=== PATIENT | female | born 1930 | race Caucasian/White ===

== ENCOUNTER 2018-04-01 17:05 | Inpatient (IN) | payer OTHER, MEDICAID ==
[~2018-04-01] VITALS: Ht 160 cm; Wt 64.1 kg
[~2018-04-01 17:05] MED LIST: AMLO5TAB4 PO; CLOP75TA2 PO; DOCU-144 PO; ESCI10TA PO; MEMA10TA PO; RISP0.5T5 PO; TRAM1TAB33 PO; VALS160T2 PO
--- NOTE | 2018-04-01 19:20 | NUR ---
ADMIT / OPENING NOTE Received patient direct admit from [facility] via ambulance. Admit to Dr. Toña Short. VSS, temp 97.8, nonlabored breathing, 92% oxygen on room air. Patient is AOx1, confused and does not speak luxembourgish. Bed locked to lowest position, bed alarm on and call light near.
--- NOTE | 2018-04-01 19:50 | NUR ---
SON AT BEDSIDE Son, Adolfo Shahid is visiting at bedside and answering questions regarding the patient's condition. Patient is confused and is very restless. Son is asking if she has medication to calm her. Will page Dr. Short to notify and request medication orders. Will follow up
--- NOTE | 2018-04-01 20:45 | NUR ---
S/W Dr. Short Spoke to Dr. Short and obtained admitting orders. He did order for a sitter, but did not order medication to calm the patient. He said he will reconcile the medications.
[2018-04-01] MEDS ORDERED: DONE10TA44 PO (20:56)
[2018-04-01] MEDS ORDERED: SERT50TA12 PO (20:56)
[2018-04-01] MEDS ORDERED: ANT30 PO (20:56)
[2018-04-01] MEDS ORDERED: CARB1TAB21 PO (20:56)
[2018-04-01] MEDS ORDERED: ZOLP5TAB2 PO (20:56)
[2018-04-01] MEDS ORDERED: IPRA3AMP9 INH (20:56)
[2018-04-01] MEDS ORDERED: MOM PO (20:56)
[2018-04-01] MEDS ORDERED: ACET325T53 PO (20:56)
[2018-04-01] MEDS ORDERED: ACET-2165 PO (20:56)
[2018-04-01] MEDS ORDERED: TRAM50TA2 PO (20:56)
[2018-04-01] MEDS ORDERED: CEFEPIME 1 GM/VIAL (MAXIPIME) ONE (21:50)
[2018-04-01 22:06] LABS: BASOPHILS # (AUTO) 0.1 K/uL (0.0-0.2); BASOPHILS % (AUTO) 0.8 % (0.0-2.0); EOSINOPHILS # (AUTO) 0.2 K/uL (0.0-0.4); HEMATOCRIT 41.4 % (36-48); HEMOGLOBIN 13.3 g/dL (12.0-16.0); LYMPHOCYTES # (AUTO) 2.8 K/uL (1.0-5.5); LYMPHOCYTES % (AUTO) 31.8 % (20.5-51.5); MEAN CORPUSCULAR HEMOGLOBIN 30 pg (27-31); MEAN CORPUSCULAR HGB CONC 32 % (32-36); MEAN CORPUSCULAR VOLUME 94 fL (79.0-98.0); MONOCYTES # (AUTO) 0.8 K/uL (0.0-1.0); MONOCYTES % (AUTO) 8.7 % (1.7-9.3); NEUTROPHILS % (AUTO) 56.7 % (40.0-70.0); PLATELET COUNT (AUTO) 286 K/uL (130-430); RED BLOOD CELL COUNT(AUTO) 4.41 MIL/uL (4.2-6.2); RED CELL DISTRIBUTION WIDTH 13.1 % (9.0-15.0); WHITE BLOOD COUNT (AUTO) 8.9 K/uL (4.8-10.8)
--- NOTE | 2018-04-01 22:13 | NUR ---
Paged Dr. Short on his pager.
--- NOTE | 2018-04-01 22:20 | NUR ---
s/w Dr. Short Spoke w/ Dr. Short and notified that patient continues to exhibit combative behavior and that it took four nurses to start an IV. He ordered Haldol IM 3mg once.
[2018-04-01 22:33] LABS: ALBUMIN 3.7 g/dL (3.4-4.8); ANION GAP 12 (5-15); ASPARTATE AMINOTRANSFERASE 18 U/L (10-37); CALCIUM 9.6 mg/dL (8.4-11.0); CHLORIDE 102 mmol/L (98-107); CREATININE 1.43 mg/dL (0.55-1.30); GLUCOSE 94 mg/dL (70-99); POTASSIUM 4.4 mmol/L (3.5-5.1); SODIUM SERUM 138 mmol/L (136-145); TOTAL BILIRUBIN 0.5 mg/dL (0.0-1.0); UREA NITROGEN, BLOOD 21 mg/dL (8-21)
[2018-04-01 22:55] LABS: ALANINE AMINOTRANSFERASE 14 U/L (12-78)
[2018-04-01] MEDS ORDERED: HALOPERIDOL LACTATE 5 MG/ML VIAL IM ONE (23:00)
[2018-04-01] MEDS: KCL 20 mEq in D5/0.45NS 1000mL 1,000 ML IV SCH (23:41)
[2018-04-01] MEDS: CEFEPIME 1 GM in D5W 50 ML IV SCH (23:42)
[2018-04-02] VITALS (7 sets, daily range): BP systolic 122–155
[2018-04-02] MEDS ORDERED: MAG-AL HYDROX/SIMETH 30 ML UDC PO PRN (00:15)
[2018-04-02] MEDS ORDERED: traMADol HCL HCL 50 MG TABLET (ULTRAM) PO PRN (00:15)
[2018-04-02] MEDS ORDERED: IPRATROPIUM/ALBUTEROL SULFATE 3 ML AMPUL.NEB (DUONEB) INH PRN (00:15)
[2018-04-02] MEDS ORDERED: MILK OF MAGNESIA 30 ML UDC PO PRN (00:15)
[2018-04-02] MEDS ORDERED: ACETAMINOPHEN 325 MG TABLET PO PRN ×2 (00:15)
[2018-04-02] MEDS ORDERED: SERTRALINE HCL 50 MG TABLET PO PRN (00:15)
--- NOTE | 2018-04-02 00:20 | NUR ---
Spoke to Dr. Short at the bedside. Informed him of patient's current behavior. Asked Dr. Short about possible restraints, he refused to order restraints; only sitter was to be ordered. Informed him that patient pulled out her IV. Orders received. Haldol 3mg IM one time dose after 0100 IV can be started on the leg, per Dr. Short. He stated "Leg IV is okay, patient will keep pulling out the IV if in her arm." Orders have been input. Spoke to bench molder apprentice, Jisha and ASAF Briggs about new orders from Dr. Short
[2018-04-02] MEDS ORDERED: HALOPERIDOL LACTATE 5 MG/ML VIAL IM ONE (00:30)
--- NOTE | 2018-04-02 01:30 | NUR ---
ROUNDS Patient remains very agitated and combative. Administered Haldol 3mg IM as ordered. Sitter is at bedside and safety/fall precautions in place. Will monitor.
--- NOTE | 2018-04-02 04:30 | NUR ---
ROUNDS Patient is awake and remains restless and agitated. Sitter at bedside reports, patient has not slept. Administered zoloft as ordered, it was given PO crushed-mixed w/ applesauce. Patient swallowed medication. Will monitor. Sitter remains at bedside.
--- NOTE | 2018-04-02 06:45 | NUR ---
CLOSING NOTE Patient presently calm, resting in bed w/eyes closed and doll by her side. IV to right ankle remains patent and IVF infusing as ordered. Safety and fall precautions in place. Sitter at bedside. Will endorse care to oncoming morning nurse.
--- NOTE | 2018-04-02 07:40 | NUR ---
AM NOTES Patient awake in bed, confused and agitated, VSS, incontinent of urine, changed and repositioned, IV on right ankle infusing fluids, bruises on both upper extremities, no open wounds, unable to get pulse ox due to agitation with touch, pt now resting comfortably in bed. safety precautions observed, bed in lowest position, call light within reach, sitter remains at bedside. pt refuses to eat at this time, will try again in a little while. will continue to monitor.
[2018-04-02 08:04] LABS: BILIRUBIN,URINE NEGATIVE (NEGATIVE); BLOOD, URINE NEGATIVE (NEGATIVE); CLARITY/URINE HAZY (CLEAR); COLOR,URINE YELLOW (YELLOW); GLUCOSE,URINE NEGATIVE (NEGATIVE); KETONES,URINE NEGATIVE (NEGATIVE); LEUKOCYTE ESTERASE ,URINE TRACE (NEGATIVE); NITRITE, URINE NEGATIVE (NEGATIVE); PROTEIN URINE 2+ (NEGATIVE); UROBILINOGEN,URINE 0.2 (0.2-1.0)
[2018-04-02 08:23] LABS: BACTERIA,URINE MANY /HPF (None Seen); RBC,URINE 0-3 /HPF (0-3)
[2018-04-02 08:24] LABS: MUCUS,URINE None Seen /LPF (None Seen)
[2018-04-02] MEDS: MEMANTINE HCL 5 MG TABLET PO SCH ×2 (09:13→20:39)
[2018-04-02] MEDS: CLOPIDOGREL BISULFATE 75 MG TABLET PO SCH (09:13)
[2018-04-02] MEDS: VALSARTAN 160 MG TABLET (DIOVAN) PO SCH (09:14)
[2018-04-02] MEDS: amLODIPine BESYLATE 5 MG TABLET PO SCH (09:15)
[2018-04-02] MEDS: DOCUSATE SODIUM 100 MG CAPSULE PO SCH ×2 (09:16→20:40)
--- NOTE | 2018-04-02 09:27 | NUR ---
NOTES morning meds given with applesauce and carpenter wooden tank erecting used, RN spoke lithuanian to communicate with patient. Pt refused breakfast, only drank the milk. Pt resting comfortably in bed, no apparent distress noted, safety precautions observed, bed in lowest position, side rails up, call light within reach. will continue to monitor.
--- NOTE | 2018-04-02 10:21 | NUR ---
Nutrition Update Toni Scale 13 noted. Pt admitted for UTI. Diet: regular, mechanical soft BMI: 25 kg/m2 RD to follow per nutrition care standards.
--- NOTE | 2018-04-02 12:30 | NUR ---
Notes/lunch In bed, resting. no signs of distress noted. Turned and repositioned. Tried to feed patient, but pt refuses to eat lunch.
[2018-04-02] MEDS: KCL 20 mEq in D5/0.45NS 1000mL 1,000 ML IV SCH (13:34)
--- NOTE | 2018-04-02 14:18 | NUR ---
NOTES Complete linen and gown change. Patient repositioned for comfort. Pt cooperative and is now comfortably resting with no signs of distress noted. will continue to monitor.
--- NOTE | 2018-04-02 18:22 | NUR ---
CLOSING NOTES FED PT DINNER AND SHE ATE 50%. PT AWAKE AND STILL CONFUSED. NO ACUTE DISTRESS NOTED. IVF INFUSING WELL ON THE RIGHT FOOT. NO SWELLING OR REDNESS NOTED ON THE IV SITE. PT WAS CALM THE WHOLE DAY AND SLEPT MOST OF THE TIME. NO CHANGE IN ASSESSMENT, NEEDS ATTENDED TO, WILL ENDORSE CARE TO ONCOMING RN.
--- NOTE | 2018-04-02 19:10 | NUR ---
DR. SUAZO AT BEDSIDE
--- NOTE | 2018-04-02 19:15 | NUR ---
OPENING NOTE RECEIVED ENDORSEMENT REPORT FROM DAY SHIFT NURSE AT BEDSIDE. PT IS AOX1, MALTESE SPEAKING. PT RESTING COMFORTABLY IN BED WITH EYES OPEN AND ROCKING HER BABY DOLL. CHEST RISE EVEN AND UNLABORED. NO SOB NOTED. NO DISTRESS NOTED. NO S/S OF PAIN NOTED. PT'S VITAL SIGNS WNL. IV ON RIGHT FOOT 22G , IV CLEAN, DRY AND INTACT. IVF INFUSING WELL, AT ORDERED RATE. PT HAS SKIN DISCOLORATION ON BILATERAL WRISTS. ORIENTED PT TO HOSPITAL ROOM, BED, CALL LIGHT AND ROOM PHONE. PT UNABLE TO VERBALIZE UNDERSTANDING. INSTRUCTED PT HOW TO USE CALL LIGHT AND ROOM PHONE. PT UNABLE TO VERBALIZE UNDERSTANDING. EDUCATED PT ON SAFETY, PT UNABLE TO VERBALIZE UNDERSTANDING. SAFETY MEASURES IN PLACE. CALL LIGHT/ ROOM PHONE WITHIN REACH, BED IN LOWEST POSITION, BED WHEELS LOCKED, BED ALARM ON, SIDE RAILS UP X3, BEDSIDE TABLE WITHIN REACH. NO OTHER NEEDS AT THIS TIME. INSTRUCTED PT TO USE CALL LIGHT FOR ASSISTANCE. WILL CONTINUE TO MONITOR PT AT BEDSIDE AND CONTINUE POC.
[2018-04-02] MEDS: DONEPEZIL HCL 5 MG TABLET (ARICEPT) PO SCH (20:39)
[2018-04-02] MEDS: ZOLPIDEM TARTRATE 5 MG TABLET PO SCH (20:39)
--- NOTE | 2018-04-02 20:40 | NUR ---
RN ROUNDS PT RESTING IN BED WITH EYES OPEN. CHEST RISE EVEN AND UNLABORED. NO SOB NOTED. NO DISTRESS NOTED. PT DENIES PAIN AT THIS TIME. PT'S VITAL SIGNS WNL. IVF INFUSING WELL, AT ORDERED RATE. SCHEDULED MEDICATIONS ADMINISTERED ORDERED, PT TOLERATED WELL. NO OTHER NEEDS AT THIS TIME. SAFETY MEASURES IN PLACE. CALL LIGHT/ ROOM PHONE WITHIN REACH, BED IN LOWEST POSITION, BED WHEELS LOCKED, BED ALARM ON, SIDE RAILS UP X3, BEDSIDE TABLE WITHIN REACH. INSTRUCTED PT TO USE CALL LIGHT FOR ASSISTANCE. WILL CONTINUE TO MONITOR PT AT BEDSIDE AND CONTINUE POC.
[2018-04-02] MEDS: ENOXAPARIN SODIUM 30 MG/0.3 ML SYRINGE SUBCUT SCH (20:42)
[2018-04-02] MEDS: CEFEPIME 1 GM in D5W 50 ML IV SCH (23:29)
--- NOTE | 2018-04-02 23:29 | NUR ---
RN ROUNDS PT RESTING IN BED WITH EYES CLOSED. CHEST RISE EVEN AND UNLABORED. NO SOB NOTED. NO DISTRESS NOTED. NO S/S OF PAIN NOTED. PT EASILY AWAKEN. SCHEDULED ANTIBIOTIC ADMINISTERED, PT TOLERATED WELL. IVF INFUSING WELL, AT ORDERED RATE. NO OTHER NEEDS AT THIS TIME. SAFETY MEASURES IN PLACE. WILL CONTINUE TO MONITOR PT AT BEDSIDE AND CONTINUE POC.
--- NOTE | 2018-04-03 02:40 | NUR ---
RN ROUNDS PT RESTING IN BED WITH EYES CLOSED. CHEST RISE EVEN AND UNLABORED. NO SOB NOTED. NO DISTRESS NOTED. NO S/S OF PAIN NOTED. IVF INFUSING WELL, AT ORDERED RATE. NO OTHER NEEDS AT THIS TIME. SAFETY MEASURES IN PLACE. WILL CONTINUE TO MONITOR PT AT BEDSIDE AND CONTINUE POC.
[2018-04-03] MEDS: KCL 20 mEq in D5/0.45NS 1000mL 1,000 ML IV SCH ×2 (03:10→17:37)
[2018-04-03 03:52] VITALS: BP_SYST 140
--- NOTE | 2018-04-03 07:19 | NUR ---
CLOSING NOTE ENDORSED PT CARE TO DAY SHIFT NURSE AT BEDSIDE. PT IS AOX1, RESTING IN BED WITH EYES CLOSED. CHEST RISE EVEN AND UNLABORED. NO SOB NOTED. NO DISTRESS NOTED. NO S/S OF PAIN NOTED AT THIS TIME. PT'S VITAL SIGNS WERE STABLE THROUGHOUT THE NIGHT. ALL SCHEDULED MEDICATIONS ADMINISTERED ORDERED. PT TOLERATED WELL. ALL NEEDS MET THROUGHOUT SHIFT. SAFETY MEASURES IN PLACE. CALL LIGHT/ ROOM PHONE WITHIN REACH, BED IN LOWEST POSITION, BED WHEELS LOCKED, BED ALARM ON, SIDE RAILS UP X3, BEDSIDE TABLE WITHIN REACH. NO OTHER NEEDS AT THIS TIME. INSTRUCTED PT TO USE CALL LIGHT FOR ASSISTANCE. PT CARE MED THROUGHOUT SHIFT, POC ENDORSED TO DAY SHIFT.
--- NOTE | 2018-04-03 07:58 | NUR ---
AM NOTES RECEIVED CARE OF PT. PT RESTING IN BED, IS INCONTINENT OF URINE. CLEANED AND CHANGED LINEN. REPOSITIONED FOR COMFORT. PT ON ROOM AIR BREATHING EVEN AND EFFORTLESSLY. IVF INFUSING IN RIGHT FOOT, NO SIGNS OF REDNESS OR SWELLING AT IV SITE. PT COOPERATIVE AT THIS TIME. SAFETY PRECAUTIONS OBSERVED, BED IN LOWEST POSITION, CALL LIGHT IN REACH, SIDE RAILS UP, SITTER AT BEDSIDE. WILL CONTINUE TO MONITOR.
[2018-04-03 08:00] VITALS: BP_SYST 130
[2018-04-03] MEDS: MEMANTINE HCL 5 MG TABLET PO SCH ×2 (08:41→21:53)
[2018-04-03] MEDS: VALSARTAN 160 MG TABLET (DIOVAN) PO SCH (08:42)
[2018-04-03] MEDS: amLODIPine BESYLATE 5 MG TABLET PO SCH (08:42)
[2018-04-03] MEDS: DOCUSATE SODIUM 100 MG CAPSULE PO SCH ×2 (08:43→21:53)
[2018-04-03] MEDS: CLOPIDOGREL BISULFATE 75 MG TABLET PO SCH (08:43)
--- NOTE | 2018-04-03 09:19 | NUR ---
CONSULTS SEEN BY DR. ARMSTRONG AND EXAMINED PATIENT. PT IS AWAKE NOW AND EATING BREAKFAST (CLEAR LIQUID DIET). DENIES ANY PAIN OR DISCOMFORT. Addendum: 04/03/18 at 0922 by Angely Raza RN ERROR... WRONG ENTRY... INTENDED TO ANOTHER PATIENT.
--- NOTE | 2018-04-03 09:30 | NUR ---
notes pt refused to eat her breakfast.
--- NOTE | 2018-04-03 12:00 | NUR ---
Notes Pt resting in bed, no acute distress noted.
[2018-04-03 12:02] VITALS: BP_SYST 135
--- NOTE | 2018-04-03 14:08 | NUR ---
ATTENDING MD FINANCIAL COACH DR MACKAY WAS PAGED, RE: PT IS POSITIVE MRSA NARES. SPOKE TO JUVENAL
--- NOTE | 2018-04-03 14:34 | NUR ---
Notes Resting in bed, no signs and symptoms of distress noted. turned and repositioned.
[2018-04-03 16:00] VITALS: BP_SYST 143
--- NOTE | 2018-04-03 16:40 | NUR ---
NOTES/IV REWRAPPED IV ON RIGHT FOOT FOR COMFORT. IVF INFUSING, NO SIGNS OF EDEMA, REDNESS OR WARMTH. PT RESTING IN BED, BREATHING EVEN AND EFFORTLESSLY TO ROOM AIR. WILL CONTINUE TO MONITOR.
--- NOTE | 2018-04-03 18:08 | NUR ---
NOTES PT HAS FAMILY AT BEDSIDE, FAMILY FEEDING PT HER DINNER. PT COOPERATIVE AND SHOWS NO SIGNS OF DISTRESS. WILL CONTINUE TO MONITOR.
--- NOTE | 2018-04-03 18:15 | NUR ---
NOTES/TRANSFER PT MOVED TO ROOM 104 WITH ALL BELONGINGS DUE TO ISOLATION PRECAUTIONS FOR MRSA IN NARES.
--- NOTE | 2018-04-03 18:43 | NUR ---
CLOSING NOTES PT RESTING IN BED WITH NO ACUTE DISTRESS NOTED. PT BREATHING EVEN AND UNLABORED TO ROOM AIR. IVF INFUSING WELL ON THE RIGHT FOOT. NO SWELLING OR REDNESS NOTED ON THE IV SITE. PT WAS CALM THE WHOLE DAY AND SLEPT MOST OF THE TIME. NO CHANGE IN ASSESSMENT, NEEDS HAVE BEEN ATTENDED TO. SAFETY PRECAUTIONS OBSERVED, BED IN LOWEST POSITION, CALL LIGHT WITHIN REACH, SIDE RAILS UP, AND SITTER AT BEDSIDE. WILL ENDORSE CARE TO ONCOMING RN.
--- NOTE | 2018-04-03 19:05 | NUR ---
OPENING NOTES: Pt and endorsement received from day shift nurse. Pt is resting in bed with both eyes closed and visible chest rise and fall noted. Sitter at bedside. No signs of acute distress or SOB noted. Pt on IVF of D5 0.45NS with 20 mEq of Kcl infusing well on right foor. Call light with pt, bed alarm on and at its lowest level. Will continue to monitor.
--- NOTE | 2018-04-03 21:22 | NUR ---
PATIENT IS AWAKE AT THIS TIME SHE IS CALM NO AGITATION SHE JUST MOVED HER HANDS AND LOOKED AROUND
[2018-04-03 21:48] VITALS: BP_SYST 153
[2018-04-03] MEDS: DONEPEZIL HCL 5 MG TABLET (ARICEPT) PO SCH (21:53)
[2018-04-03] MEDS: ZOLPIDEM TARTRATE 5 MG TABLET PO SCH (21:59)
[2018-04-03] MEDS: ENOXAPARIN SODIUM 30 MG/0.3 ML SYRINGE SUBCUT SCH (22:00)
--- NOTE | 2018-04-03 22:00 | NUR ---
MED PASS Pt was able to tolerate all oral medications. Crushed oral meds and given with apple sauce to the pt. Aspiration precaution maintained throughout, head elevated at 90 degrees and waited pt to swallow all her meds. Will continue to monitor.
[2018-04-03] MEDS: CEFEPIME 1 GM in D5W 50 ML IV SCH (22:25)
[2018-04-03] MEDS: MUPIROCIN 2% TOPICAL OINTMENT 22 GM NS SCH (22:26)
[2018-04-04 00:27] VITALS: BP_SYST 141
--- NOTE | 2018-04-04 02:50 | NUR ---
RESTING Pt is resting in bed with both eyes closed. With visible chest rise and fall noted. No signs of acute distress or SOB noted. Safety precautions in place, 3 side rails up, bed alarm on and at its lowest level, call light with pt. Will continue to monitor.
[2018-04-04] MEDS: KCL 20 mEq in D5/0.45NS 1000mL 1,000 ML IV SCH ×3 (04:20→21:32)
--- NOTE | 2018-04-04 06:20 | NUR ---
BLOOD DRAW NOT TAKEN Blood draw not taken by Julianna Amezquita. She tried twice and wasn't successful, pt's vein got infiltrated and pt is constantly moving.
--- NOTE | 2018-04-04 06:52 | NUR ---
CLOSING Pt is resting in bed with both eyes closed. With visible chest rise and fall with non-labored breathing noted. No signs of acute distress noted. All needs attended throughout the shift. Safety precautions in place, bed alarm on and at its lowest level, 3 side rails up and call light with pt. Will endorse to days shift nurse.
[2018-04-04 08:00] VITALS: BP_SYST 126
--- NOTE | 2018-04-04 08:00 | NUR ---
RN OPENING NOTE PATIENT RESTING ON BED, OPEN EYES, ALERT ORIENTED X1, FLACC SCALE SHOWS THE PATIENT IN NO PAIN, VITAL SIGNS WERE STABLE. AND PATIENT WAS ASSESSED, BED AT LOW POSITION AND CALL LIGHT WITHIN REACH , WILL CONTINUE TO MONITOR AND WILL GIVE THE MEDICATION AT 0900.
[2018-04-04 08:55] LABS: ANION GAP 8 (5-15); CALCIUM 9.2 mg/dL (8.4-11.0); CHLORIDE 104 mmol/L (98-107); CREATININE 1.32 mg/dL (0.55-1.30); GLUCOSE 104 mg/dL (70-99); POTASSIUM 4.4 mmol/L (3.5-5.1); SODIUM SERUM 137 mmol/L (136-145); UREA NITROGEN, BLOOD 13 mg/dL (8-21)
[2018-04-04 09:00] LABS: BASOPHILS # (AUTO) 0.1 K/uL (0.0-0.2); BASOPHILS % (AUTO) 0.7 % (0.0-2.0); EOSINOPHILS # (AUTO) 0.3 K/uL (0.0-0.4); EOSINOPHILS % (AUTO) 4.7 % (0.0-4.0); HEMATOCRIT 36.9 % (36-48); HEMOGLOBIN 12.4 g/dL (12.0-16.0); LYMPHOCYTES # (AUTO) 1.6 K/uL (1.0-5.5); LYMPHOCYTES % (AUTO) 21.5 % (20.5-51.5); MEAN CORPUSCULAR HEMOGLOBIN 30 pg (27-31); MEAN CORPUSCULAR HGB CONC 34 % (32-36); MEAN CORPUSCULAR VOLUME 90 fL (79.0-98.0); MONOCYTES # (AUTO) 0.7 K/uL (0.0-1.0); MONOCYTES % (AUTO) 9.7 % (1.7-9.3); NEUTROPHILS # (AUTO) 4.7 K/uL (1.8-7.7); NEUTROPHILS % (AUTO) 63.4 % (40.0-70.0); PLATELET COUNT (AUTO) 250 K/uL (130-430); RED BLOOD CELL COUNT(AUTO) 4.09 MIL/uL (4.2-6.2); RED CELL DISTRIBUTION WIDTH 13.4 % (9.0-15.0); WHITE BLOOD COUNT (AUTO) 7.4 K/uL (4.8-10.8)
[2018-04-04] MEDS: amLODIPine BESYLATE 5 MG TABLET PO SCH (09:00)
[2018-04-04] MEDS: VALSARTAN 160 MG TABLET (DIOVAN) PO SCH (09:42)
[2018-04-04] MEDS: MUPIROCIN 2% TOPICAL OINTMENT 22 GM NS SCH ×2 (09:42→21:33)
[2018-04-04] MEDS: DOCUSATE SODIUM 100 MG CAPSULE PO SCH ×2 (09:42→21:33)
[2018-04-04] MEDS: CLOPIDOGREL BISULFATE 75 MG TABLET PO SCH (09:43)
[2018-04-04] MEDS: MEMANTINE HCL 5 MG TABLET PO SCH ×2 (09:43→21:33)
--- NOTE | 2018-04-04 10:00 | NUR ---
RN NOTE PATIENT WAS REPOSITIONED, ATE A LITTLE BIT OF HER BREAKFAST. PATIENT WAS GIVEN HER MEDICATION CRUSHED WITH APPLE SAUCE. PATIENT WAS EDUCATED ABOUT ONE OF HER MEDICATION, PLEASE REFERE TO THE EDUCATION CHARTING, BED AT LOW POSITION AND CALL LIGHT WITHIN REACH, WILL CONTINUE TO MONITOR.
--- NOTE | 2018-04-04 12:00 | NUR ---
RN NOTE PATIENT RESTING ON BED, OPEN EYES BUT NON VERBAL. PATIENT WAS SERVED HER LUNCH, SON BY THE BED SIDE, FEEDING HIS MOTHER, WILL CONTINUE TO MONITOR.
[2018-04-04 12:18] VITALS: BP_SYST 131
--- NOTE | 2018-04-04 14:00 | NUR ---
RN NOTE PATIENT WAS REPOSITIONED. APPEARED NOT TO BE IN PAIN BY FLACC SCALE. PATIENT WAS EDUCATED ABOUT FALL PREVENTION. A FOLLOW UP IS NEEDED SINCE PATIENT IS INCOHERENT. AND DEMENTED.
--- NOTE | 2018-04-04 16:00 | NUR ---
RN NOTE PATIENT RESTING ON BED, SON ABOUT TO LEAVE BUT WANTED NURSES TO CALL HIM REGARDING WHERE HIS MOTHER WILL BE PLACED, HIS BUSSINESS CARD WAS PLACED ON HIS SBAR AND WILL ENDORSE TO NEXT SHIFT.
[2018-04-04 16:02] VITALS: BP_SYST 134
--- NOTE | 2018-04-04 18:00 | NUR ---
RN NOTE PATIENT RESTING ON BED, PATIENT LINEN WERE CHANGED AFTER THE PATIENT VOIDED. NEW DARON WERE DONNED. PATIENT WAS SERVED HER DINNER, AND THE COUNTRY PRINTER WAS FEEDING THE PATIENT. PATIENT APPEAR IN NO PAIN OR DISCOMFORT. WILL ENDORSE TO NEXT SHIFT.
--- NOTE | 2018-04-04 19:32 | NUR ---
OPENING NOTES Pt and endorsement received from day shift nurse. Pt is awake, lying in bed while eating and being fed by JAJA Larose. Pt is cooperative and no signs of agitation. No signs of acute distress noted. Pt on IVF D51/2NS with 20mEq KCL at 75ml/hr infusing well on right foot. Call light with pt, bed alarm on and at its lowest level. Will continue to monitor.
[2018-04-04] MEDS: DONEPEZIL HCL 5 MG TABLET (ARICEPT) PO SCH (21:32)
[2018-04-04] MEDS: CEFEPIME 1 GM in D5W 50 ML IV SCH (21:32)
[2018-04-04 21:33] VITALS: BP_SYST 147
[2018-04-04] MEDS: ZOLPIDEM TARTRATE 5 MG TABLET PO SCH (21:38)
[2018-04-04] MEDS: ENOXAPARIN SODIUM 30 MG/0.3 ML SYRINGE SUBCUT SCH (21:41)
--- NOTE | 2018-04-04 23:00 | NUR ---
ROUNDS Pt is awake, lying in bed while rocking her doll. Pt appears stable and no signs of acute distress at this time. No signs of agitation noted. Safety precautions in place and call light with pt. Will continue to monitor.
[2018-04-05] VITALS (10 sets, daily range): BP systolic 121–181
--- NOTE | 2018-04-05 01:30 | NUR ---
HIGH BP Pt's BP was high and was rechecked multiple times, latest is 181/98. Informed charge nurse Barbara Ovalle.
--- NOTE | 2018-04-05 01:35 | NUR ---
PAGEPippa DIAZ Pagepippa Hutchison, who is covering for Dr. Short. [phone] cara Beltrán
--- NOTE | 2018-04-05 01:52 | NUR ---
second page for Dr. Vasquez Beltrán [phone]
--- NOTE | 2018-04-05 02:08 | NUR ---
third page for Dr. Ovalle Page for Dr. Vasquez Beltrán [phone]
--- NOTE | 2018-04-05 02:27 | NUR ---
BP RECHECK Rechecked pt's BP and is 178/91. Pt is awake and arousable by name. Pt appears not to be in pain by FLACC scale. No other signs of acute distress like SOB noted. Will continue to monitor.
--- NOTE | 2018-04-05 02:30 | NUR ---
NOTES Dr. Ovalle was paged 3 times by [facility] but no call back from Dr. Ovalle. Charge nurse Alda made aware.
--- NOTE | 2018-04-05 03:36 | NUR ---
RESTING Pt is resting in bed with both eyes closed. With visible chest rise and fall with unlabored breathing noted. No signs of any acute distress and a FLACC scale of 0/10. Safety precautions in place and call light with pt. Will continue to monitor.
--- NOTE | 2018-04-05 07:00 | NUR ---
SPOKE TO DR MACKAY Spoke to Dr. Mackay over the phone, informed him about pt's blood pressure being high at 0130 (see vital signs sheet), and that her BP dropped at 148/[address] Mackay acknowledges it and no new orders was given.
--- NOTE | 2018-04-05 07:10 | NUR ---
CLOSING Pt is resting in bed with both eyes closed. With visible chest rise and fall noted. No signs of any acute distress or SOB and a FLACC scale of 0/10. All needs attended throughout the shift. Safety precautions maintained and call light with pt. Will endorse to day shift nurse.
--- NOTE | 2018-04-05 08:00 | NUR ---
Opening Note pt resting in bed, A&Ox1, respirations even and unlabored on room air, no pain noted using FLACC scale, no acute distress noted, IV site clean, dry, intact, and infusing well, room close to nurses station, pt educated on use of call light and asked to call for assistance, call light in reach, bed alarm on, bed in low and locked position, fall, aspiration, and isolation precautions in place.
[2018-04-05] MEDS: DOCUSATE SODIUM 100 MG CAPSULE PO SCH ×3 (09:00→20:06)
[2018-04-05] MEDS: MEMANTINE HCL 5 MG TABLET PO SCH ×3 (09:46→20:06)
[2018-04-05] MEDS: MUPIROCIN 2% TOPICAL OINTMENT 22 GM NS SCH ×2 (09:46→20:06)
[2018-04-05] MEDS: CLOPIDOGREL BISULFATE 75 MG TABLET PO SCH (09:46)
[2018-04-05] MEDS: VALSARTAN 160 MG TABLET (DIOVAN) PO SCH (09:49)
[2018-04-05] MEDS: amLODIPine BESYLATE 5 MG TABLET PO SCH (09:49)
--- NOTE | 2018-04-05 10:03 | NUR ---
Medication pt educated on medication use and side effects, pt tolerated medication administration well, no acute distress noted, pt refusing colace, pt spit out, fall and aspiration precautions in place. Addendum: 04/05/18 at 1004 by Aneta Phillips RN add: isolation precautions in place.
--- NOTE | 2018-04-05 12:05 | NUR ---
RN Rounds pt sleeping in bed, respirations even and unlabored on room air, no acute distress noted, fall, aspiration, and isolation precautions in place.
--- NOTE | 2018-04-05 13:56 | NUR ---
RN Rounds pt resting in bed, awake, no pain noted using FLACC scale, no acute distress noted, fall, aspiration, and isolation precautions in place.
--- NOTE | 2018-04-05 15:19 | NUR ---
Notes pt incontinent of urine, pt cleaned and repositioned by OIL PUMP STATION OPERATOR CHIEF, pt tolerated well, no acute distress noted, fall, aspiration, and isolation precautions in place.
--- NOTE | 2018-04-05 16:10 | NUR ---
DC Planing: Called dr. Short for DCP order.
--- NOTE | 2018-04-05 17:30 | NUR ---
Notes pt assisted to eat dinner, tolerated well, no acute distress noted, fall, aspiration, and isolation precautions in place.
--- NOTE | 2018-04-05 19:05 | NUR ---
Closing Note pt resting in bed, A&Ox1, respirations even and unlabored on room air, no pain noted using FLACC scale, no acute distress noted, IV site clean, dry, intact, and infusing well, room close to nurses station, pt educated on use of call light and asked to call for assistance, call light in reach, bed alarm on, bed in low and locked position, fall and aspiration precautions in place, care endorsed to Joseph RN.
--- NOTE | 2018-04-05 20:00 | NUR ---
Initial Notes Received patient resting in bed, awake, confused, nonverbal, family at bedside. Patient appears in no acute distress or pain at this time. Vital signs stable. Breathing is even and unlabored. IV site patent/clean/dry. Needs addressed. Repositioned patient for comfort. Fall precautions in place, will continue to monitor.
[2018-04-05] MEDS: ZOLPIDEM TARTRATE 5 MG TABLET PO SCH (20:06)
[2018-04-05] MEDS: DONEPEZIL HCL 5 MG TABLET (ARICEPT) PO SCH (20:06)
[2018-04-05] MEDS: ENOXAPARIN SODIUM 30 MG/0.3 ML SYRINGE SUBCUT SCH (20:07)
--- NOTE | 2018-04-05 21:10 | NUR ---
Dr. Short came and examined Patient. Dr. Short came and ordered to discharge patient back to [facility]. Call placed to Son Adolfo Henderson but no answer. Contacted daughter Nancy Marks and informed her that patient will be transfer back to [facility] and she stated Will message her brother. Primary RN made aware.
--- NOTE | 2018-04-05 21:20 | NUR ---
Report Called Report called to [facility], Geraldine RON. Patient will be going to room 29C.
--- NOTE | 2018-04-05 23:00 | NUR ---
Hygiene Care Hygiene and incontinence care provided by ELECTRIC ACCOUNTING MACHINE OPERATOR.
--- NOTE | 2018-04-05 23:50 | NUR ---
Discharged to [facility] Patient discharged to [facility] via [facility]. All personal belongings and discharge paperwork given to ambulance personnel. Patient in no acute distress, vital signs stable. Off unit via [facility] @ [id number].
== END 2018-04-05 23:50 | DRG 689 ==
LOC: SMU 19:07
PROVIDERS: ADMIT Family Medicine; ATTEND Family Medicine
DX: N39.0 Urinary tract infection, site not specified (principal); G93.41 Metabolic encephalopathy; E87.2 Acidosis; I10 Essential (primary) hypertension; F03.90 Unspecified dementia, unspecified severity, without behavioral disturbance, psychotic disturbance, mood disturbance, and anxiety; M19.90 Unspecified osteoarthritis, unspecified site; M24.561 Contracture, right knee; M24.551 Contracture, right hip; M24.571 Contracture, right ankle; M24.574 Contracture, right foot; Z79.899 Other long term (current) drug therapy
CPT/HCPCS: 36415; 80048; 80053; 81000-TC; 83605; 85025; 87040-TC; 87081; 87086; J0692; J1630; J1650; J7060; J7620